=== PATIENT | male | born 1950 | race Caucasian/White ===

== ENCOUNTER 2016-06-04 14:56 | Inpatient (IN) ==
[2016-06-04] MEDS ORDERED: 0.9 % Sodium Chloride 1,000 ML IVC ONE (15:14)
[2016-06-04] MEDS ORDERED: *HR* Promethazine 25 MG/ML VIAL IVP ONE (15:14)
--- NOTE | 2016-06-04 15:17 | Emergency Department Note ---
Disposition Clinical Impression: Partial small bowel obstruction, Acute kidney injury Nausea and vomiting Qualifiers: Vomiting type: unspecified Vomiting Intractability: intractable Qualified Code( s): R11.2 - Nausea with vomiting, unspecified Disposition: Admitted As Inpatient Condition: Good Abdominal Pain HPI - General Chief Complaint: ED Abdominal Pain Stated Complaint: nausea, bowel obstruction Time Seen by Provider: 06/04/16 15:13 Source: patient, EMS Limitations: no limitations Nursing Notes Reviewed: Yes Vital Signs Reviewed: Yes - History of Present Illness HPI Narrative: 65-year-old male presents to the ER as a transfer from the [facility] due to partial small bowel obstruction. Pt Subjective Complaint: abdominal pain Onset (ago): day(s) (Wednesday) Consistency: constant Location: diffuse Pain Severity: mild Pain Scale: 3 Quality: aching Radiation: none Migration to: no migration Improves with: nothing Worsens with: eating Associated symptoms: Reports: nausea, vomiting, diarrhea. Denies: fever, constipation Treatments prior to arrival: none - Related Data Home Medications Medication Instructions Recorded Confirmed Albuterol Sulfate [Albuterol 2 puff IH Q6H PRN 06/04/16 06/04/16 Inhaler] Amlodipine Besylate 10 mg PO DAILY 06/04/16 06/04/16 Atenolol [Tenormin] 25 mg PO DAILY 06/04/16 06/04/16 Atorvastatin Calcium [Lipitor] 80 mg PO HS 06/04/16 06/04/16 Cholecalciferol (D-3) [Vitamin D] 1,000 unit PO DAILY 06/04/16 06/04/16 Clopidogrel [Plavix] 75 mg PO DAILY 06/04/16 06/04/16 Lisinopril [Zestril] 10 mg PO DAILY 06/04/16 06/04/16 Tiotropium [Spiriva] 18 mcg IH DAILY 06/04/16 06/04/16 Tramadol HCl [Ultram] 50 mg PO BID PRN 06/04/16 06/04/16 Allergies Allergy/AdvReac Type Severity Reaction Status Date / Time No Known Allergies Allergy Verified 06/04/16 15:09 All systems ED: reviewed and negative except as stated. Constitutional: Denies: fever Cardiovascular: Denies: chest pain Respiratory: Denies: dyspnea Gastrointestinal: Reports: abdominal pain, nausea, vomiting, diarrhea. Denies: constipation Musculoskeletal: Denies: back pain Integumentary: Denies: rash Abdominal Pain PMH - Past Medical History Medical history: Reports: coronary artery disease, hyperlipidemia, hypertension , migraine Male Surgical History: Reports: angioplasty/stent, LE stent(s), LE vascular intervention Psychiatric history: Reports: no psych history - Social History Smoking status: Current every day smoker Alcohol use: Reports: rarely Drug use: Reports: none Physical Exam - General Limitations: no limitations General appearance: alert, in no apparent distress - Head Head exam: atraumatic, normocephalic, normal inspection - Eye Eye exam: Present: normal appearance - ENT ENT exam: normal exam, mucous membranes dry - Neck Neck exam: Present: normal inspection - Chest Chest inspection: Present: normal inspection, symmetric chest wall rise - Respiratory Respiratory exam: Present: normal lung sounds bilaterally. Absent: respiratory distress, wheezes, accessory muscle use - Cardiovascular Cardiovascular exam: Present: regular rate, normal rhythm, normal heart sounds - Abdominal Exam Abdominal exam: Present: soft, tenderness (Mild diffuse tenderness to palpation. Mildly distended abdomen. No guarding, rigidity or rebound on exam. ), normal bowel sounds - Extremities Exam Extremities exam: Present: normal inspection - Expanded Lower Extremity Exam Hip/Pelvis exam: Present: normal inspection Upper leg exam: Present: normal inspection Knee exam: Present: normal inspection Lower leg exam: Present: normal inspection Ankle exam: Present: normal inspection Foot/toe exam: Present: normal inspection - Back Exam Back exam: Present: normal inspection - Neurological Exam Neurological exam: Present: alert - Psychiatric Psychiatric exam: Present: normal affect, normal mood - Skin Skin exam: Present: warm, dry, intact Course Course Narrative: 65-year-old male history of CAD, peripheral artery disease, hypertension, hyperlipidemia, nicotine abuse who presents to the ER as a transfer from the [facility] due to partial small bowel obstruction, nausea, vomiting, diarrhea. Patient reports she started having abdominal pain around 3 AM on Wednesday morning. He reports that woke him from sleep. He continued to have an ache which prompted him to go to the CT where they did a CT scan showing a partial small bowel obstruction. Patient reports that he has been nauseated and has had vomiting since Wednesday and has also had a lot of diarrhea. He is passing flatus as well. He denies a history of intra-abdominal procedures. He denies fevers, chest pain, shortness of breath. Endorses abdominal pain, nausea , vomiting, diarrhea. No other complaints. Review the patient's labs from the [facility] shows a normal white count. LFTs, alkaline phosphatase and bilirubin are within normal limits. He does appear to have an acute kidney injury with albumin of 29 and a creatinine of 1.59. We will continue IV fluids here we will give another dose of Phenergan for nausea, speak with the on-call surgeon and admit the patient to the hospital for partial small bowel obstruction, nausea, vomiting, acute kidney injury - Consultations Consultation #1: I discussed this case with the on-call surgeon Dr. Wakefield. Discussed results of the CT scan from the outside facility as well as the patient's exam and lab findings. He reports that it is unlikely that he has a bowel obstruction given lack of abdominal procedures. Likely gastroenteritis with an ileus. He reports to pay for us to admit him to the hospitalist and he will consult if needed. Vital Signs Temperature 97.9 F 06/04/16 14:59 Pulse Rate 69 06/04/16 14:59 Respiratory Rate 14 06/04/16 14:59 Blood Pressure 131/78 06/04/16 14:59 O2 Sat by Pulse Oximetry 96 06/04/16 14:59 Temperature 97.9 F 06/04/16 14:59 Pulse Rate 64 06/04/16 15:12 Respiratory Rate 14 06/04/16 17:09 Blood Pressure 151/73 06/04/16 17:09 O2 Sat by Pulse Oximetry 99 06/04/16 15:12 Oxygen Delivery Oxygen Delivery Room Air Abdominal Pain - MDM Narrative Medical decision making narrative: 65-year-old male presents to the ER as a transfer from the [facility] due to partial small bowel obstruction concern. Here he is afebrile. His abdominal exam is nonsurgical. Reviewed his labwork and imaging with the radiology read of early partial small bowel obstruction. His labs also show an acute kidney injury with a creatinine of 1.59 with no previous for comparison. I discussed this case with the on-call surgeon who believes it does not and obstruction but more likely gastroenteritis with inflammatory changes. Case discussed with the hospitalist and will be admitted for further management. - Lab Data Lab results reviewed: Yes I reviewed the patient's lab results. - Radiology Data Radiology results reviewed: Yes I reviewed the patient's radiology results. - EKG Data EKG attestation: Yes I reviewed and interpreted this EKG. EKG results narrative: EKG shows sinus rhythm with a rate of 64 bpm. Normal axis. MT interval 138 QRS duration [address] elevations or depressions. No acute ischemic findings. EKG shows normal: sinus rhythm, axis, intervals, QRS complexes Rate: normal Rhythm: NSR [place]/QRS: normal When compared to previous EKG there are: previous EKG unavailable Interpretation: normal EKG, nonspecific ST-T wave changes S.B.A.R. - S.B.A.R. Situation: Demographics, MOA Background: Presenting Complaint, Relevant PMH, Meds, & Allergies Assessment: Vital Signs, Course and respsone to treatment, Exam Concerns, Patient/Family Expectation, Pertinant Lab Results, Outstanding Labs Recommendation: Barrier(s) to disposition, Recommendation based on pending studies, treatments, or consults S.B.A.R. Report Given to: Dr. Garcia
--- NOTE | 2016-06-04 15:47 | Emergency Department Note ---
START Narrative - START START: I examined this patient and my medical decision-making was reviewed with the [employer]PA/Advanced Practice Nurse/Resident Physician. I agree with the documented findings, disposition and treatment plan as described except to the extent set forth below. ED attending note: I saw this Patient with the emergency medicine resident Dr. Waters. Please see a copy of his note for details of the H&P, evaluation, management and disposition of this emergency Department patient. We independently had [id number] contact with the patient. Briefly: Patient is 65-year-old transferred by EMS from [facility] for suspected partial small bowel obstruction which was revealed upon abdominopelvic CT scan at the [facility]. Patient says symptoms to me going on for several days of increasing inability to keep down solid food. Abdominal cramping and pain. Nausea and vomiting. Low-grade fever. On physical examination here he is in mild distress pain 1 out of 10, abdomen surgically benign. We will consult Gen. surgery with an anticipation of admission to hospitalist service. Disposition pending. Patient stable.
[2016-06-04] MEDS ORDERED: Naloxone 0.4 MG/ML INJ IVP PRN (17:35)
[2016-06-04] MEDS ORDERED: *HR* Morphine 2 MG/ML SYRINGE IVP PRN (17:36)
[2016-06-04] MEDS ORDERED: Acetaminophen 325 MG TABLET PO PRN (17:36)
[2016-06-04] MEDS ORDERED: Ondansetron 4 MG/2 ML VIAL IVP PRN (17:36)
[2016-06-04] MEDS ORDERED: traMADol 50 MG TABLET PO PRN (17:49)
--- NOTE | 2016-06-04 17:55 | Internal Med History&Physical ---
Date of Encounter: 06/04/16 Time of Encounter: 17:00 Assessment and Plan (1) Gastroenteritis Current visit: Yes Status: Acute 1 patient has been experiencing nausea vomiting diarrhea for the past 4 days. Afebrile no leukocytosis. Suspect this is viral, will obtain stool cultures- will start on Cipro and Flagyl until cultures resulted 2 make patient nothing by mouth advance as tolerated 3 Zofran and Imodium as needed 4 IV fluids 5 monitor intake and output 6 monitor electrolytes and replace as needed (2) Ileus Current visit: Yes Status: Acute 1 patient has been experiencing nausea vomiting diarrhea past [address] of abdomen with moderately dilated mid ileal small bowel loops suspect possible ileus related to gastroenteritis. Feel that small bowel obstruction is less likely due to history of surgical procedures or adhesions-we will obtain KUB 2 patient nothing by mouth-advanced as tolerated 3 consult surgery as needed (3) Hypertension Current visit: Yes Status: Acute 1. Presently controlled Continue home medications however will hold lisinopril due to elevated creatinine. We will resume with respect baseline-goals to maintain systolic less than 140 Qualifiers: Hypertension type: essential hypertension Qualified Code(s): I10 - Essential (primary) hypertension (4) Tobacco use disorder Current visit: Yes Status: Acute 1 encouraged patient to stop smoking - nicotine patch (5) Acute kidney injury Current visit: Yes Status: Acute 1 patient's creatinine 1.59. Ensure baseline patient states he has not had any renal issues. He has had fluid losses and has not been able to eat or drink for the past 4 days due to his dehydration we will give IV fluids overnight and continue to monitor creatinine 2 avoid nephrotoxins renal dose antibiotics 3 monitor intake and output (6) DVT prophylaxis Current visit: Yes Status: Acute 1 [facility] Internal Medicine - H&P: HPI Chief complaint: NVD Admitted From: Emergency Dept Plans for Post Hospital Care: Home History of present illness: Mr. Garcia is a 65 year old male past medical history CAD with stent placement hypertension hyperlipidemia, tobacco use . Patient has been in his usual state of health up until Wednesday. Wednesday morning he began to experience nausea vomiting diarrhea which continued over the past 4 days He has had 10-20 watery bowel movements daily, with no blood, mucus or black tarry stools Denies flank pain or hematuria. He also has been experiencing diffuse abdominal pain, described as aching, that is continuous and seems to be worse prior to bowel movements. He has been experiencing belching/flatus. He does not have appetite has not been able to eat or drink anything since Wednesday. He denies any sick contacts, travel.His last meal was Wednesday evening which consisted of a hamburger at [employer]. He presented to the [facility] for evaluation today . According to [facility] records , CT of abdomen was performed which revealed moderately dilated mid ileal small bowel loops containing semisolid debris, which was consistent with an early or partial small bowel obstruction. Lab work revealed elevated creatinine 1.51, no leukocytosis , rest of lab work is unremarkable. Patient was given IV fluid and Zofran and was transferred to [facility] for further workup. According to ER records physician spoke with Dr. Wakefield concerning case, he felt that it was unlikely small bowel obstruction more likely gastroenteritis with ileus and to consult surgery as needed. Patient is admitted for further workup and evaluation. Presently the patient complains of mild abdominal pain. No nausea vomiting diarrhea at this time, abdomen is soft with diffuse tenderness on palpitation. Presently he is hemodynamically stable. I reviewed case with Dr Garcia who agrees with plan. Past Med Surg Social Fam HX - Past Medical History Medical history: coronary artery disease, hyperlipidemia, hypertension, migraine Psychiatric history: no psych history - Social History Smoking Status: Current every day smoker Alcohol use: rarely Drug use: none - Family History Father Living Status: Hx Family Neurologic Disorders: Yes (CVA) Mother Hx Family Cardiac Disorders: Yes (HTN) Hx Family Endocrine Disorder: Yes (DM) Internal Medicine - H&P: Meds Albuterol Sulfate [Albuterol Inhaler] 2 puff IH Q6H PRN 06/04/16 [History] Amlodipine Besylate 10 mg PO DAILY 06/04/16 [History] Atenolol [Tenormin] 25 mg PO DAILY 06/04/16 [History] Atorvastatin Calcium [Lipitor] 80 mg PO HS 06/04/16 [History] Cholecalciferol (D-3) [Vitamin D] 1,000 unit PO DAILY 06/04/16 [History] Clopidogrel [Plavix] 75 mg PO DAILY 06/04/16 [History] Lisinopril [Zestril] 10 mg PO DAILY 06/04/16 [History] Tiotropium [Spiriva] 18 mcg IH DAILY 06/04/16 [History] Tramadol HCl [Ultram] 50 mg PO BID PRN 06/04/16 [History] Allergies No Known Allergies Allergy (Verified 06/04/16 15:09) All Systems PM: A 10-system review of systems was performed and is negative for pertinent findings except as documented above in the HPI. - Constitutional Constitutional: anorexia, fatigue, lethargy - Cardiovascular Cardiovascular ROS IM: no chest pain, no diaphoresis, no dyspnea, no lightheadedness, no palpitations, no syncope - Respiratory Respiratory: no cough, no dyspnea, no wheezing, no excessive phlegm production - Gastrointestinal Gastrointestinal: belching, bloating, cramping, diarrhea, excessive flatus, nausea, vomiting - Neurological Neurological ROS: no confusion, no convulsions, no focal weakness, no numbness, no tingling, no tremor(s) - Constitutional Vitals: Temp Pulse Resp BP Pulse Ox 97.9 F 64 14 151/73 99 06/04/16 14:59 06/04/16 15:12 06/04/16 17:09 06/04/16 17:09 06/04/16 15:12 General appearance: Present: A&O X 3, answers questions appropriately - Head Head exam: Present: atraumatic, normocephalic - Neck Neck exam general surgery: Present: supple, trachea midline. Absent: lymphadenopathy - Respiratory Respiratory exam: Present: CTAB. Absent: accessory muscle use, rales, rhonchi, wheezes - Cardiovascular Cardiovascular exam: Present: RRR, +S1, +S2. Absent: diastolic murmur, gallop, rubs, systolic murmur - GI/Abdominal GI/Abdominal exam: Present: distended, normal bowel sounds, soft, tenderness, no peritoneal signs - Extremities Exam Extremities exam: Present: warm, radial pulses palpable and symetrical. Absent : calf tenderness, cyanotic, pedal edema - Neurological Exam Neurological exam: Present: CN II-XII intact, oriented X3, no focal deficits. Absent: pronater drift, facial droop, speech deficit - Skin Skin exam: Present: dry, intact Internal Med - H&P Results - Labs Labs: [facility] lab[facility] 04 11 AM AST 21 ALP 19 total bili 0.6 alkaline phosphatase 91 calcium 9.1 total protein 8 albumin 4.1 sodium 138 potassium 3.8 chloride 106 glucose 87 CO2 21 BUN 29 creatinine 1.59 GFR 56.5 CBC WBCs 9.5 RBCs 5.37 hemoglobin 17.2 hematocrit 50.3 platelets 14 Influenza A and B- negative - Diagnostic Studies CT scan - abdomen Additional comments: Per radiology reading there are moderately dilated mid ileal small bowel loops containing semisolid debris which have not been opacified by the oral contrast. The colon and distal ileum are nondistended. These findings are most consistent with early or partial small bowel obstruction, likely in the region of mid ileum. Surgical consultation is recommended. There is a 4.2 x 3.2 cm abdominal aortic aneurysm. Prostrate enlargement and heterogeneity. Low- density hepatic and renal lesions consistent with cyst
[2016-06-04] MEDS: 0.9 % Sodium Chloride 1,000 ML IVC SCH (19:43)
[2016-06-05] MEDS: MetroNIDAZOLE 500 MG/100 ML 500 MG/100 ML BAG IVPB SCH ×2 (00:15→07:51)
[2016-06-05 05:14] LABS: Basophils % 0.4 %; Eosinophils # 0.1 K/mcL (0.0-0.6); Eosinophils % 0.9 %; Hematocrit 43.4 % (37.5-50.1); Hemoglobin 14.9 g/dL (12.9-16.9); Immature Granulocytes % 0.2 % (0-4); Lymphocytes # 2.2 K/mcL (0.6-4.6); Lymphocytes % 41.1 %; Mean Corpuscular HGB Conc 34.3 g/dL (31.6-35.5); Mean Corpuscular Hemoglobin 32.4 pg (28.0-33.3); Mean Corpuscular Volume 94.3 fL (83.0-100.0); Mean Platelet Volume 11.2 fL (9.4-12.4); Monocytes # 0.9 K/mcL (0.0-1.3); Neutrophils # 2.1 K/mcL (1.6-8.9); Platelet Count 114 K/mcL (140-400); Red Cell Distribution Width 13.9 % (11.5-14.5); Segmented Neutrophils % 40.4 %
[2016-06-05] MEDS: *HR* Enoxaparin 40 MG/0.4 ML SYRINGE SQ SCH (05:24)
[2016-06-05 05:30] LABS: BUN/Creatinine Ratio 22 (6-26); Blood Urea Nitrogen 24 mg/dL (8-26); Calcium 8.5 mg/dL (8.6-10.8); Carbon Dioxide 16 mEq/L (19-29); Chloride 112 mEq/L (98-109); Glucose 77 mg/dL (70-99); Magnesium 1.6 mg/dL (1.6-2.6); Osmolality,Calculated 283 (280-300); Potassium 4.2 mEq/L (3.5-4.5); Sodium 135 mEq/L (136-145); eGFR For African Americans > 60 (> 60); eGFR For Non-African Americans > 60 (> 60)
[2016-06-05] MEDS: amLODIPine 5 MG TABLET PO SCH (07:50)
[2016-06-05] MEDS: Cholecalciferol (D-3) 1,000 UNIT TABLET PO SCH (07:50)
[2016-06-05] MEDS: 0.9 % Sodium Chloride 1,000 ML IVC SCH ×2 (07:51→14:12)
[2016-06-05] MEDS: Tiotropium 18 MCG inhalation IH SCH (10:22)
[2016-06-05 10:54] LABS: Adenovirus F 40/41 PCR Not detected (Not detect); Astrovirus PCR Not detected (Not detect); C.difficile Toxin A/B by PCR Not detected (Not detect); Campylobacter by PCR Not detected (Not detect); Cryptosporidium by PCR Not detected (Not detect); Cyclospora cayetanensis PCR Not detected (Not detect); E. coli O157 by PCR Not detected (Not detect); Entamoeba histolytica PCR Not detected (Not detect); Enteroaggregative E.coli(EAEC) Not detected (Not detect); Enteropathogenic E.coli(EPEC) ***DETECTED*** (Not detect); Enterotoxigenic E.coli (ETEC) Not detected (Not detect); Giardia lamblia PCR Not detected (Not detect); Norovirus GI/GII PCR Not detected (Not detect); Plesiomonas shigelloides PCR Not detected (Not detect); Rotavirus A PCR ***DETECTED*** (Not detect); Salmonella PCR Not detected (Not detect); Sapovirus PCR Not detected (Not detect); Shig/EnteroinvasiveE coli EIEC Not detected (Not detect); Shigalike tox-prod E coli STEC Not detected (Not detect); Vibrio PCR Not detected (Not detect); Vibrio cholerae PCR Not detected (Not detect); Yersinia enterocolitica PCR Not detected (Not detect)
--- NOTE | 2016-06-05 11:48 | Internal Med Progress Note ---
Date of Encounter: 06/05/16 Time of Encounter: 11:47 - Assessment and plan (1) Gastroenteritis Current Visit: Yes Status: Acute (2) Volume depletion Current Visit: Yes Status: Acute (3) Hypoglycemia Current Visit: Yes Status: Acute - Time Spent With Patient Plan Patient had positive for rotavirus and Escherichia coli in his stool. Continue ciprofloxacin. C. difficile negative for discontinue Flagyl. Close monitoring of patient's symptom. Advance diet as tolerated. Continue IV fluids. Counseling on oral hydration. Possible discharge in next 24 hours if his bowel movement is improving. We will add lactobacillus. Contact isolation. Monitor electrolytes 25 - 35 minutes - Subjective Interval history: Patient continued to have further diarrhea. 6 bowel movement overnight. Patient denies any fever or chills. He denies any nausea or vomiting - Constitutional Vitals: Temp Pulse Resp BP Pulse Ox 98.3 F 56 14 110/67 93 L 06/05/16 10:00 06/05/16 10:00 06/05/16 10:25 06/05/16 10:00 06/05/16 10:25 General appearance: Present: A&O X 3, answers questions appropriately - Head Head exam: Present: atraumatic, normocephalic - Respiratory Respiratory exam: Present: CTAB. Absent: accessory muscle use, rales, rhonchi, wheezes - Cardiovascular Cardiovascular exam: Present: RRR, +S1, +S2. Absent: diastolic murmur, gallop, rubs, systolic murmur - GI/Abdominal GI/Abdominal exam: Present: normal bowel sounds, soft, no peritoneal signs. Absent: distended, tenderness - Extremities Exam Extremities exam: Present: warm, radial pulses palpable and symetrical. Absent : calf tenderness, cyanotic, pedal edema - Neurological Exam Neurological exam: Present: CN II-XII intact, oriented X3, no focal deficits. Absent: pronater drift, facial droop, speech deficit Internal Medicine: Result - Labs CBC & Chem 7: 06/05/16 04:38 06/05/16 04:38 Labs: Short CBC 06/05/16 Range/Units 04:38 WBC 5.3 (4.3-11.1) K/mcL Hgb 14.9 (12.9-16.9) g/dL Hct 43.4 (37.5-50.1) % Plt Count 114 L (140-400) K/mcL Neutrophils # 2.1 (1.6-8.9) K/mcL BMP 06/05/16 04:38 Sodium 135 L Potassium 4.2 Chloride 112 H Carbon Dioxide 16 L BUN 24 Creatinine 1.10 Glucose 77 Calcium 8.5 L - Impressions Impressions KUB X-Ray 06/04/16 17:37 IMPRESSION: Mild ileus. D/ / Zaki Pierson MD / Zaki Pierson MD Interpreting Provider: Zaki Pierson MD Consult Discharge Plan - Plan Referrals: [facility] [Outside] - 06/18/16 8:15 am
[2016-06-05] MEDS ORDERED: 0.9 % Sodium Chloride 1,000 ML IVC ONE (12:41)
--- NOTE | 2016-06-05 17:18 | Electrocardiograph Report ---
[place] [id number] Test Date: 2016-06-04 Pat Name: Marbin Garcia Department: 103 Room: 3A25 Gender: M Shop Assistant: : 1950 Requested By: Maxwell Waters Order Number: [id number] Reading MD: Flor Carrington Measurements Intervals [place] Rate: 64 P: 65 [place]: 138 QRS: 41 QRSD: 85 T: 33 QT: 400 QTc: 410 Interpretive Statements SINUS RHYTHM NONSPECIFIC T-WAVE ABNORMALITY Electronically Signed On 06-05-2016 17:16:35 EST by Flor Carrington
[2016-06-05] MEDS: Lactobacillus 1 EACH CAP.SPRINK PO SCH (18:12)
[2016-06-05] MEDS: Magnesium Oxide 400 MG TABLET PO SCH (20:48)
[2016-06-06] MEDS: *HR* Enoxaparin 40 MG/0.4 ML SYRINGE SQ SCH (05:33)
[2016-06-06 05:36] LABS: BUN/Creatinine Ratio 17 (6-26); Blood Urea Nitrogen 16 mg/dL (8-26); Calcium 8.4 mg/dL (8.6-10.8); Carbon Dioxide 16 mEq/L (19-29); Chloride 112 mEq/L (98-109); Glucose 109 mg/dL (70-99); Magnesium 1.6 mg/dL (1.6-2.6); Osmolality,Calculated 284 (280-300); Phosphorous 2.7 mg/dL (2.3-4.7); Potassium 3.9 mEq/L (3.5-4.5); Sodium 136 mEq/L (136-145); eGFR For African Americans > 60 (> 60); eGFR For Non-African Americans > 60 (> 60)
[2016-06-06] MEDS: Tiotropium 18 MCG inhalation IH SCH (07:54)
[2016-06-06] MEDS: Lactobacillus 1 EACH CAP.SPRINK PO SCH (07:55)
[2016-06-06] MEDS: Cholecalciferol (D-3) 1,000 UNIT TABLET PO SCH (07:56)
[2016-06-06] MEDS: Magnesium Oxide 400 MG TABLET PO SCH (07:56)
[2016-06-06] MEDS: amLODIPine 5 MG TABLET PO SCH (07:57)
[2016-06-06 08:01] VITALS: BP 133/79
--- NOTE | 2016-06-06 09:14 | Discharge Summary ---
Date of Encounter: 06/07/16 Time of Encounter: 09:12 - Discharge Diagnosis (1) Gastroenteritis Priority: Primary Status: Acute (2) Hypertension Priority: Secondary Status: Acute Qualifiers: Hypertension type: essential hypertension Qualified Code(s): I10 - Essential (primary) hypertension (3) Nausea and vomiting Priority: Primary Status: Acute Qualifiers: Vomiting type: unspecified Vomiting Intractability: intractable Qualified Code(s): R11.2 - Nausea with vomiting, unspecified - Discharge Medications Prescriptions: Ciprofloxacin [Cipro] 500 mg PO BID #8 tablet Home Medications: Albuterol Sulfate [Albuterol Inhaler] 2 puff IH Q6H PRN 06/04/16 [History] Amlodipine Besylate 10 mg PO DAILY 06/04/16 [History] Atenolol [Tenormin] 25 mg PO DAILY 06/04/16 [History] Atorvastatin Calcium [Lipitor] 80 mg PO HS 06/04/16 [History] Cholecalciferol (D-3) [Vitamin D] 1,000 unit PO DAILY 06/04/16 [History] Clopidogrel [Plavix] 75 mg PO DAILY 06/04/16 [History] Lisinopril [Zestril] 10 mg PO DAILY 06/04/16 [History] Tiotropium [Spiriva] 18 mcg IH DAILY 06/04/16 [History] Tramadol HCl [Ultram] 50 mg PO BID PRN 06/04/16 [History] Ciprofloxacin [Cipro] 500 mg PO BID #8 tablet 06/06/16 [Rx] Allergies/Adverse Reactions: Allergies No Known Allergies Allergy (Verified 06/04/16 15:09) Date of admission: 06/04/16 16:50 Primary care physician: PCP [place] Discharging clinician: Alessandra Brooks Anticipated date of discharge: 06/06/16 - Patient Status Disposition: Home, Self-Care Condition: Fair Functional capacity at discharge: independent ambulation Overall status at discharge: patient is back to baseline - Discharge Instructions Follow Up With: [facility] [Outside] - 06/18/16 8:15 am - Diet and Activity Activity: resume usual activities as tolerated Diet: advance to your usual diet Interval History: Mr. Garcia is a 65 year old male past medical history CAD with stent placement hypertension hyperlipidemia, tobacco use . Patient has been in his usual state of health up until Wednesday. Wednesday morning he began to experience nausea vomiting diarrhea which continued over the past 4 days He has had 10-20 watery bowel movements daily, with no blood, mucus or black tarry stools Denies flank pain or hematuria. He denies any sick contacts, travel.His last meal was Wednesday evening which consisted of a hamburger at [employer]. [facility] the [place] [facility] was performed which revealed moderately dilated mid ileal small bowel loops containing semisolid debris, which was consistent with an early or partial small bowel obstruction. Lab work revealed elevated creatinine 1.51, no leukocytosis , rest of lab work is unremarkable. According to ER records physician spoke with Dr. Wakefield concerning case, he felt that it was unlikely small bowel obstruction more likely gastroenteritis with ileus and to consult surgery as needed. Patient is admitted for further workup and evaluation. work up showed PCR positive for stool rotavirus and EPEC. he was treated for acute gastroenteritis with IV antibiotics he imrpoved clinicaly and his symptoms improved. he is being dc on oral antibiotics in stable condition. Hospital course: Mr. Garcia is a 65 year old male Time spent discussing smoking cessation with patient: more than 10 minutes - Time Spent with Patient Total time spent providing and/or coordinating discharge services: Greater than 30 minutes - Constitutional Vitals: Temp Pulse Resp BP Pulse Ox 98.0 F 62 16 133/79 97 06/06/16 07:58 06/06/16 07:58 06/06/16 07:58 06/06/16 07:58 06/06/16 07:58 General appearance: Present: A&O X 3, answers questions appropriately Exam: - Head Head exam: Present: atraumatic, normocephalic - Respiratory Respiratory exam: Present: CTAB. Absent: accessory muscle use, rales, rhonchi, wheezes - Cardiovascular Cardiovascular exam: Present: RRR, +S1, +S2. Absent: diastolic murmur, gallop, rubs, systolic murmur - GI/Abdominal GI/Abdominal exam: Present: normal bowel sounds, soft, no peritoneal signs. Absent: distended, tenderness - Extremities Exam Extremities exam: Present: warm, radial pulses palpable and symetrical. Absent : calf tenderness, cyanotic, pedal edema - Neurological Exam Neurological exam: Present: CN II-XII intact, oriented X3, no focal deficits. Absent: pronater drift, facial droop, speech deficit
== END 2016-06-06 10:22 | disposition home or self-care (01) | DRG 392 ==
LOC: EMEROO 14:56 → 3ANU 14:56
PROVIDERS: ADMIT Family Medicine; ATTEND Family Medicine